=== PATIENT | female | born 1965 | race Caucasian/White ===

== ENCOUNTER 2016-10-12 09:12 | Day surgery (SDC) | payer BC ==
[~2016-10-12] VITALS: Ht 170.2 cm; Wt 94.5 kg
[2016-10-12 10:10] VITALS: Ht 170.2 cm; Wt 94.5 kg
[2016-10-12] MEDS ORDERED: AMITRIPTYLINE (10:10)
[2016-10-12] MEDS ORDERED: VENLAFAXINE HCL (10:10)
[2016-10-12] MEDS ORDERED: PROPOFOL 20 ML ONE (10:15)
[2016-10-12 10:31] VITALS: BP 118/62; PULSE 77; RESP 14
[2016-10-12 11:31] VITALS: BP 92/54; PULSE 61; RESP 20
--- NOTE | 2016-10-13 01:31 | GILP ---
DATE OF PROCEDURE: NAME OF PROCEDURE: Colonoscopy. SURGEON: Jay Cid MD PREOPERATIVE DIAGNOSIS: Screening colonoscopy. POSTOPERATIVE DIAGNOSES: 1. Colonoscopy all the way to the cecum. 2. Diverticulosis of the colon. 3. Internal hemorrhoids. 4. No colon neoplasm was identified. INDICATION FOR PROCEDURE: Ms. Catie Kauffman is a 51-year-old female patient who was scheduled for s creening colonoscopy. The procedure and possible complications were well explained to the patient. She understood and con sented to the procedure. DESCRIPTION OF PROCEDURE: Under the influence of anesthesia, the colonoscope was carefully introduc ed in the rectum, and under direct vision, it was advanced all the way to the cecum. FINDINGS: The patient had diverticulosis of the colon. She also had internal hemorrhoids. No colo n neoplasm was identified. She tolerated the procedure very well. There was no complication from the procedure. At the end of procedure, she was awake with stable vital signs, and she was discharged home to the care of her [facility]. IMPRESSION: Please see postoperative diagnoses. PLAN: Next screening colonoscopy in 10 years. Dictated By: JAY MELENDREZ/HANNAH Conf#: [id number] DID#: [id number]
== END 2016-10-12 12:12 | disposition home or self-care (01) ==
LOC: GIL 09:12
PROVIDERS: ATTEND Internal Medicine Gastroenterology
DX: Z12.11 Encounter for screening for malignant neoplasm of colon (principal); K57.90 Diverticulosis of intestine, part unspecified, without perforation or abscess without bleeding; K64.8 Other hemorrhoids; E66.9 Obesity, unspecified; Z68.32 Body mass index [BMI] 32.0-32.9, adult